=== PATIENT | female | born 1950 | race Caucasian/White ===

== ENCOUNTER 2023-04-30 16:17 | Emergency (ER) | payer MEDICARE, SELFPAY ==
[2023-04-30] VITALS (20 sets, daily range): BP systolic 148–202; BP diastolic 68–92; PULSE 62–71; RESP 10–23; TEMP 36.3; O2SAT 95–100; BMI 21.7
--- NOTE | 2023-04-30 16:33 | DI.RAD.S_ITS ---
PROCEDURE: XR CHEST 1V INDICATIONS: chest pain TECHNIQUE: One view of the chest was acquired. COMPARISON: None. FINDINGS: Surgical changes and devices: None. Lungs and pleura: Lungs are clear. No pleural effusions or pneumothorax. Mediastinum: Mediastinal contours appear normal. Heart size is normal. Bones and chest wall: No suspicious bony lesions. Overlying soft tissues appear unremarkable. IMPRESSION: Normal for age, source of current chest pain symptoms is not seen. Dictated by: Reginaldo Camacho M.D. on 04/30/2023 at 16:58 Approved by: Reginaldo Camacho M.D. on 04/30/2023 at 16:59
[2023-04-30] MEDS: ASPIRIN 81 MG CHEW TAB 324 MG PO (16:51)
[2023-04-30 16:53] LABS: Add Manual Diff / Slide Review NO; Basophils Absolute Auto 100 /uL (0-100); Basophils Percent Auto 1.3 % (0-2); Eosinophils Absolute Auto 100 /uL (0-450); Eosinophils Percent Auto 1.7 % (2-4); Hematocrit 40.3 % (36-46); Hemoglobin 13.7 g/dL (12.0-16.0); Lymphocytes Absolute Auto 2500 /uL (1100-4500); Lymphocytes Percent Auto 42.7 % (25-40); Mean Corpuscular Hemoglobin 32.9 PG (26-34); Mean Corpuscular Volume 96.7 fL (80-100); Monocytes Absolute Auto 400 /uL (0-900); Monocytes Percent Auto 6.4 % (3-14); Neutrophils Absolute Auto 2800 /uL (1500-7000); Neutrophils Percent Auto 47.9 % (50-75); Platelet Count 179 X10^3/uL (150-400); Red Blood Cell Count 4.16 X10^6/uL (4.0-5.2); Red Cell Distribution Width 13.9 % (11.6-14.8); White Blood Cell Count 5.8 X10^3/uL (4.5-11.0)
--- NOTE | 2023-04-30 16:56 | PC.NURSE ---
Pt reports rectal bleeding which she noticed darker blood on her underwear about 2 days ago. Provider made aware.
[2023-04-30 17:00] LABS: Prothrombin Time 11.1 SECONDS (10.1-12.7)
[2023-04-30 17:03] LABS: PTT Partial Thromboplastin Tim 25 SECONDS (26-36)
[2023-04-30 17:08] LABS: Alanine Aminotransferase 18 IU/L (<35); Albumin 4.2 g/dL (3.5-5.0); Albumin Globulin Ratio 1.4 (1.0-2.8); Alkaline Phosphatase 63 U/L (38-126); Aspartate Aminotransferase 22 IU/L (14-36); Bilirubin Total 0.3 mg/dL (0.2-1.3); Blood Urea Nitrogen 14 mg/dL (7-17); Calcium 9.2 mg/dL (8.4-10.2); Carbon Dioxide 25 mmol/L (22-32); Chloride 105 mmol/L (98-107); Creatine Kinase 78 U/L (30-135); Estimated Glomerular Filt Rate > 60 mL/min (>60); Globulin 3.1 g/dL (1.7-4.1); Glucose 99 mg/dL (80-110); HEMOLYSIS < 15 (0-50); Lipase 146 U/L (23-300); Magnesium 2.2 mg/dL (1.6-2.3); Potassium 3.7 mmol/L (3.4-5.1); Sodium 137 mmol/L (137-145); Total Protein 7.3 g/dL (6.3-8.2)
[2023-04-30 17:19] LABS: NT-proBNP (BNP-Adult 18+) 185 pg/mL (<450); Troponin I < 0.012 ng/mL (0.01-0.034)
--- NOTE | 2023-04-30 18:14 | ED.CHESTPAIN ---
HPI - Chest Pain General Chief Complaint: Chest Pain Stated Complaint: Chest/back pain, Nausea Time Seen by Provider: 04/30/23 16:49 History of Present Illness HPI narrative: 73-year-old female nonsmoker without known chronic medical history presents with at least a week of left-sided chest pain with radiation to her back. She does not know exactly what she was doing when it started but states it has been present most of the time for the past week. She denies any obvious provocation or palliation and states that sometimes walking makes it worse but sometimes she can exercise and not notice anything. Also, at times it seems like eating might make it worse so she is taken some antacids but at other times it does not seem to play a role whatsoever. She denies fever or chills. She denies runny nose, sore throat or cough. She states that sometimes she feels like she can not breathe but because it feels like there is something squeezing or wrapping around her chest. She denies any trauma or injury. She denies any recent long distance travel, stating that they only had traveled here from [place]. She denies any pain, redness or swelling in either of her lower extremities, no history of clot or cancer. Related Data Allergies Allergy/AdvReac Type Severity Reaction Status Date / Time Iodinated Contrast Media Allergy Intermediate Palpitation Verified 04/30/23 17:13 s latex Allergy Intermediate Hives Verified 04/30/23 17:14 povidone-iodine Allergy Intermediate Blister Verified 04/30/23 17:14 [From Betadine] lanolin AdvReac Intermediate Blister Verified 04/30/23 17:12 Sulfa (Sulfonamide AdvReac Intermediate Nausea Verified 04/30/23 17:12 Antibiotics) Review of Systems Review of Systems Narrative: GENERAL: Denies chills, fatigue, malaise, fever, sweats. HEENT: Denies sinus pain, ear pain, sore throat, difficulty swallowing, dizziness. RESPIRATORY: See HPI CARDIOVASCULAR: See HPI GASTROINTESTINAL: Denies nausea, vomiting, abdominal pain, diarrhea, constipation, melena. : See HPI MUSCULOSKELETAL: denies weakness, joint pain, or bony pain SKIN: Denies rash, skin lesions, or other NEUROLOGIC: Denies weakness, headache, numbness, change in speech, confusion, seizures, incoordination. PSYCHIATRIC: No concerning psychosocial issues. 12 point review of systems is negative except for those stated above Exam Narrative Exam Narrative: GENERAL: [73] year old patient appears stated age. Well-developed patient, in mild distress. HEAD: Atraumatic. Normocephalic. EYES: Pupils equal round and reactive. Extraocular motions intact. No scleral icterus. No injection or drainage. ENT: Nose without bleeding, purulent drainage. Throat without erythema, tonsillar hypertrophy or exudate. Airway patent. NECK: Trachea midline. Non tender CARDIOVASCULAR: Regular rate and rhythm without murmurs, gallops, or rubs. RESPIRATORY: Clear to auscultation. Breath sounds equal bilaterally. No wheezes, rales, or rhonchi. GASTROINTESTINAL: Abdomen soft, non-tender, nondistended. EXTREMITIES: No edema or joint tenderness. BACK: Nontender without deformity or crepitance. No flank tenderness. NEURO: AOx3. SKIN: No rash or erythema of visible areas Initial Vital Signs Initial Vital Signs: Vital Signs Temperature 97.4 F L 04/30/23 16:27 Pulse Rate 70 04/30/23 16:27 Respiratory Rate 16 04/30/23 16:27 Blood Pressure 184/87 H 04/30/23 16:27 Pulse Oximetry 100 04/30/23 16:27 Oxygen Delivery Method Room Air 04/30/23 16:27 Scores HEART Score Heart Score history: Slightly Suspicious Heart Score EKG: Normal Heart Score Age: > or = 65 years old Heart Score risk factors: No known risk factors Heart Score troponin: < or = to normal limit Heart Score Total: 2 PERC Score Age greater than or equal to 50 years: Yes Heart rate greater than or equal to 100 bpm: No Room Air O2 Sat less than 95%: No Unilateral leg swelling: No Recent trauma or surgery: No Hemoptysis: No Prior PE or DVT: No Hormone Use: No Total PERC Score: 1 Wells' Criteria for PE Clinical signs and symptoms of DVT: No PE is #1 Dx or equally likely: No Heart rate > 100: No Immobilization at least 3 days or surg in previous 4 weeks: No History of PE or DVT: No Hemoptysis: No Malignancy w/Treatment within 6 months or palliative: No Wells' PE Score total: 0 Course Orders Ordered: ED Orders 04/30/23 19:51 CT angio chest PE protocol Stat 04/30/23 20:10 Troponin & CK Cardiac Panel Stat Discontinued Medications Aspirin (Aspirin 81 Mg Chew Tab) 324 mg PO NOW ONE Stop: 04/30/23 16:34 Last Admin: 04/30/23 16:51 Dose: 324 mg Documented By: SB Diphenhydramine HCl (Diphenhydramine 50 Mg/Ml Vial) 25 mg IV NOW ONE Stop: 04/30/23 19:52 Last Admin: 04/30/23 20:04 Dose: 25 mg Documented By: SB Famotidine (Famotidine 20 Mg/2 Ml Vial) 20 mg IV NOW JERED Last Admin: 04/30/23 20:04 Dose: 20 mg Documented By: SB Methylprednisolone (Methylprednisolone 125 Mg/2 Ml Vial) 125 mg IV NOW ONE Stop: 04/30/23 19:52 Last Admin: 04/30/23 20:04 Dose: 125 mg Documented By: MARCO Vital Signs Vital signs: Vital Signs - 8 hr 04/30/23 20:30 04/30/23 20:30 04/30/23 21:05 Pulse Rate 65 67 Respiratory Rate 12 11 L Blood Pressure 173/81 H Pulse Oximetry 98 Oxygen Delivery Method 04/30/23 21:07 04/30/23 21:07 04/30/23 21:30 Pulse Rate 65 62 Respiratory Rate 18 10 L Blood Pressure 176/78 H Pulse Oximetry 99 97 Oxygen Delivery Method 04/30/23 21:31 04/30/23 21:31 04/30/23 22:01 Pulse Rate 62 65 Respiratory Rate 12 Blood Pressure 152/68 H Pulse Oximetry 97 97 Oxygen Delivery Method 04/30/23 22:02 04/30/23 22:02 04/30/23 22:30 Pulse Rate 64 62 Respiratory Rate 12 14 Blood Pressure 202/92 H Pulse Oximetry 95 97 Oxygen Delivery Method 04/30/23 22:31 04/30/23 22:31 04/30/23 23:02 Pulse Rate 62 Respiratory Rate 23 Blood Pressure 200/86 H 168/87 H Pulse Oximetry 96 Oxygen Delivery Method Room Air 04/30/23 23:02 Pulse Rate 70 Respiratory Rate Blood Pressure Pulse Oximetry 96 Oxygen Delivery Method Room Air MDM - Chest Pain Lab Data 04/30/23 16:42 04/30/23 16:42 Labs: Lab Results 04/30/23 04/30/23 04/30/23 Range/Units 16:42 16:42 16:42 WBC 5.8 (4.5-11.0) X10^3/uL RBC 4.16 (4.0-5.2) X10^6/uL Hgb 13.7 (12.0-16.0) g/dL Hct 40.3 (36-46) % MCV 96.7 (80-100) fL MCH 32.9 (26-34) PG MCHC 34.0 (30-36) % RDW 13.9 (11.6-14.8) % Plt Count 179 (150-400) X10^3/uL Neut % (Auto) 47.9 L (50-75) % Lymph % (Auto) 42.7 H (25-40) % [place] % (Auto) 6.4 (3-14) % Eos % (Auto) 1.7 L (2-4) % Baso % (Auto) 1.3 (0-2) % Neut # (Auto) 2800 (0610-6506) /uL Lymph # (Auto) 2500 (6975-1901) /uL [place] # (Auto) 400 (0-900) /uL Eos # (Auto) 100 (0-450) /uL Baso # (Auto) 100 (0-100) /uL PT 11.1 (10.1-12.7) SECONDS INR 1.0 (0.9-1.3) APTT 25 L (26-36) SECONDS D-Dimer (<500) ng/ml Sodium 137 (137-145) mmol/L Potassium 3.7 (3.4-5.1) mmol/L Chloride 105 (98-107) mmol/L Carbon Dioxide 25 (22-32) mmol/L BUN 14 (7-17) mg/dL Creatinine 0.70 (0.52-1.04) mg/dL Estimated GFR > 60 (>60) mL/min BUN/Creatinine Ratio 20.0 (6-22) Glucose 99 (80-110) mg/dL Calcium 9.2 (8.4-10.2) mg/dL Magnesium 2.2 (1.6-2.3) mg/dL Total Bilirubin 0.3 (0.2-1.3) mg/dL AST 22 (14-36) IU/L ALT 18 (<35) IU/L Alkaline Phosphatase 63 (38-126) U/L Total Creatine Kinase 78 (30-135) U/L Troponin I < 0.012 (0.01-0.034) ng/mL NT-Pro-B Natriuret Pep 185 (<450) pg/mL Total Protein 7.3 (6.3-8.2) g/dL Albumin 4.2 (3.5-5.0) g/dL Globulin 3.1 (1.7-4.1) g/dL Albumin/Globulin Ratio 1.4 (1.0-2.8) Lipase 146 (23-300) U/L 04/30/23 04/30/23 Range/Units 16:42 20:10 WBC (4.5-11.0) X10^3/uL RBC (4.0-5.2) X10^6/uL Hgb (12.0-16.0) g/dL Hct (36-46) % MCV (80-100) fL MCH (26-34) PG MCHC (30-36) % RDW (11.6-14.8) % Plt Count (150-400) X10^3/uL Neut % (Auto) (50-75) % Lymph % (Auto) (25-40) % [place] % (Auto) (3-14) % Eos % (Auto) (2-4) % Baso % (Auto) (0-2) % Neut # (Auto) (8798-1181) /uL Lymph # (Auto) (9666-6416) /uL [place] # (Auto) (0-900) /uL Eos # (Auto) (0-450) /uL Baso # (Auto) (0-100) /uL PT (10.1-12.7) SECONDS INR (0.9-1.3) APTT (26-36) SECONDS D-Dimer 918 H (<500) ng/ml Sodium (137-145) mmol/L Potassium (3.4-5.1) mmol/L Chloride (98-107) mmol/L Carbon Dioxide (22-32) mmol/L BUN (7-17) mg/dL Creatinine (0.52-1.04) mg/dL Estimated GFR (>60) mL/min BUN/Creatinine Ratio (6-22) Glucose (80-110) mg/dL Calcium (8.4-10.2) mg/dL Magnesium (1.6-2.3) mg/dL Total Bilirubin (0.2-1.3) mg/dL AST (14-36) IU/L ALT (<35) IU/L Alkaline Phosphatase (38-126) U/L Total Creatine Kinase 65 (30-135) U/L Troponin I < 0.012 (0.01-0.034) ng/mL NT-Pro-B Natriuret Pep (<450) pg/mL Total Protein (6.3-8.2) g/dL Albumin (3.5-5.0) g/dL Globulin (1.7-4.1) g/dL Albumin/Globulin Ratio (1.0-2.8) Lipase (23-300) U/L MDM Narrative Medical decision making narrative: CC: 73-year-old female with chest pain radiation to her back Complicating co-morbidities: Age, hypertension Data collected from: Patient Medical records reviewed: Prior notes reviewed in our EMR Differential considered, but not limited to: Cardiac ischemia versus pulmonary embolism versus dissection versus pneumonia versus esophageal spasm versus GERD versus other Exam documented above, pertinent findings include: Heart rate regular, lungs clear to auscultation, abdomen soft Lab Test results independently reviewed as above. Pertinent findings: No leukocytosis or left shift, no signs of anemia, D-dimer 918 (above age corrected cutoff), electrolytes within normal limits, renal function within normal limits, lipase, bilirubin and LFTs all within normal Independently reviewed EKG as above Imaging studies independently reviewed: CTA demonstrates no PE or dissection Scores Used: HEART, PERC, Wells Treatments: Aspirin, Solu-Medrol, Pepcid, diphenhydramine prior to CT with IV contrast Re-evaluations: Patient's symptoms resolved Discussion: Patient with left-sided chest pain with radiation to back over the past week or so. Multiple diagnoses considered as noted above. Cardiac ischemia considered but thought less likely given low heart score, non occlusive EKG, negative troponin, lack of exertional symptoms. Pulmonary embolism considered but thought unlikely given imaging. Pain well controlled, no indication for hospitalization at this time. Return precautions discussed Disposition: see below, along with detailed discharge instructions that have been reviewed with patient as well as indications for ED re-evaluation and additional outpatient follow up Discharge Plan Departure Patient Disposition: Home Clinical Impression: Atypical chest pain, Pulmonary nodule Instructions: DI for Atypical Chest Pain Activity Restrictions/Additional Instructions: *You have been diagnosed with [atypical chest pain. As we discussed your history and physical exam are reassuring, labs showed no evidence of heart attack and CT scan suggest no blood clot is present.] *What to do: *Please continue to take your regular medications as directed. [ ] New medication prescriptions sent to your pharmacy: [ ] [ ] New medication written as a paper prescription [ ] No new medications given *Please follow up with your primary care provider in 2-3 days, call for an appointment. Let them know you were seen in the Emergency Department and that we ask that you be seen in follow up. We will electronically transmit a record of today's note if your PCP is in our system *If you do not have a primary care provider please contact the [facility] Resource line at [phone]. They will ask some questions about your medical history and help get you set up with a doctor in the community. As we discussed the CT noticed bilateral pulmonary nodules measuring up to 0.8 cm in the right lower lobe. Radiology recommends a repeat CT of your chest in 3 to 6 months to take another look *Return to Emergency Department if you should have any new, worsening or concerning symptoms, such as [fever greater than 101 F, shaking chills, worsening pain, persistent vomiting or other bothersome symptoms] Stand Alone Forms: Patient Portal/API
[2023-04-30 18:40] LABS: D Dimer 918 ng/ml (<500)
--- NOTE | 2023-04-30 19:51 | DI.CT.S_ITS ---
PROCEDURE: CT ANGIO CHEST PE PROTOCOL INDICATIONS: chest pain, radiation to back, elevated Dimer TECHNIQUE: After the administration of intravenous contrast, 2 mm thick sections acquired from the pulmonary apices to the posterior costophrenic angles. 3-dimensional maximum intensity projection (MIP) coronal and sagittal reformats were then acquired through the thorax. For radiation dose reduction, the following was used: automated exposure control, adjustment of mA and/or kV according to patient size. COMPARISON: None. FINDINGS: Image quality: Excellent. Pulmonary arteries: Pulmonary arteries are normal in size, and demonstrate no intraluminal filling defects to suggest central pulmonary embolism. Lower Neck: No lymphadenopathy by size criteria. Thyroid: Visualized thyroid demonstrates no discrete nodules. Axillae: No lymphadenopathy by size criteria. Chest Wall: Unremarkable. Bones: Visualized osseous structures demonstrate no suspicious lesions. Lungs and Airways: No acute consolidation. In the right lower lobe, there is a peripheral subpleural nodule measuring up to 0.8 cm on series 5, image 148. A smaller right lower lobe peripheral nodule is also demonstrated on series 5, image 192 measuring 0.5 cm. A 0.3 cm left lower lobe subpleural nodule is demonstrated on series 5, image 197. Dependent atelectasis demonstrated bilaterally. The trachea and central airways are patent. Pleura: No pneumothorax or pleural effusions. Heart: Heart size is mildly enlarged. No pericardial effusion. Thoracic Vessels: The thoracic aorta is normal in size. Mediastinum and Nimo: No lymphadenopathy by size criteria. Esophagus: No wall thickening. No hiatal hernia. Abdomen: Visualized upper abdominal solid organs appear normal in the early arterial phase of enhancement. IMPRESSION: 1. No evidence of pulmonary embolism. 2. Bilateral pulmonary nodules measuring up to 0.8 cm in the right lower lobe. Consider CT in 3-6 months to demonstrate stability or resolution. 3. No acute airspace consolidation. Dictated by: Nael Morel M.D. on 04/30/2023 at 22:19 Approved by: Nael Morel M.D. on 04/30/2023 at 22:23
[2023-04-30] MEDS: diphenhydrAMINE 50 MG/ML VIAL 25 MG IV (20:04)
[2023-04-30] MEDS: FAMOTIDINE 20 MG/2 ML VIAL IV (20:04)
[2023-04-30] MEDS: methylPREDNISolone 125 MG/2 ML VIAL IV (20:04)
[2023-04-30 21:48] LABS: Creatine Kinase 65 U/L (30-135)
[2023-04-30 22:01] LABS: Troponin I < 0.012 ng/mL (0.01-0.034)
== END 2023-04-30 23:10 | disposition home or self-care (01) ==
PROVIDERS: Emergency Medicine; Emergency Provider Emergency Medicine
DX: R07.89 Other chest pain (principal); R91.1 Solitary pulmonary nodule
CPT/HCPCS: 36415; 71045; 71275; 80053; 82550; 83690; 83735; 83880; 84484; 85025; 85379; 85610; 85730; 93005; 96374; 96375; 99284; 99285; J1200; J2930; Q9967